=== PATIENT | female | born 1985 | race Caucasian/White ===

== ENCOUNTER 2023-04-23 11:55 | Outpatient (CLI) | payer BC, SELFPAY | END 2023-04-23 11:56 | disposition home or self-care (01) | LOC: CHSIMG 11:59 | PROVIDERS: PCP Internal Medicine; Visit Provider Nurse Practitioner | DX: Z12.31 Encounter for screening mammogram for malignant neoplasm of breast (principal) | CPT/HCPCS: 99199 ==

== ENCOUNTER 2023-04-24 09:14 | Outpatient (CLI) | payer BC, SELFPAY ==
--- NOTE | ~2023-04-24 | MMUS_ITS ---
EXAMINATION: MM diagnostic nory BI w libia, US breast BI complete HISTORY: Bilateral breast lumps TECHNIQUE: ML, MLO and CC 3-D tomosynthesis images of both breasts were performed and synthetic 2-D i mages were generated. Magnification views of left breast. CAD analysis was submitted and interpreted. High resolution bilateral complete breast ultrasound examination including all 4 quadrants and subar eolar areas was performed. COMPARISON: None BREAST PARENCHYMAL COMPOSITION: The breasts are extremely dense, which lowers the sensitivity of mamm ography. FINDINGS: MAMMOGRAPHIC FINDINGS: Minimal benign appearing calcification is noted in each breast. Bilateral breast masses are suggested the the extremely dense stroma obscures detail. No architectural distortion, malignant calcification, skin thickening or retraction of either breast is detected. ULTRASOUND: There are multiple bilateral simple breast cysts, the largest on the right at 9:00 measuring up to 3 cm, the largest on the left measuring up to 3.3 cm. No suspicious mass or shadowing is detected. IMPRESSION: 1. Multiple bilateral benign breast cysts. No mammographic evidence of malignancy 2. Routine annual mammographic screening is recommended BI-RADS Category 2: Benign finding(s). Reviewed, dictated and finalized at location A. IMPRESSION: 1. Multiple bilateral benign breast cysts. No mammographic evidence of malignan cy 2. Routine annual mammographic screening is recommended BI-RADS Category 2: Benign finding(s).
== END 2023-04-24 09:15 | disposition home or self-care (01) ==
LOC: CHSIMG 09:15
PROVIDERS: PCP Internal Medicine; Visit Provider Nurse Practitioner
DX: N63.13 Unspecified lump in the right breast, lower outer quadrant (principal)
CPT/HCPCS: 76641; 77062; 77066; G0279

== ENCOUNTER 2025-01-27 12:25 | Outpatient (CLI) | payer BC, SELFPAY ==
--- NOTE | ~2025-01-27 | MM_ITS ---
EXAMINATION: MM screening nory BI w libia HISTORY: Screening TECHNIQUE: Craniocaudal and mediolateral oblique 3-D tomosynthesis images were obtained and synthetic 2-D images were generated. CAD analysis was submitted and interpreted. COMPARISON: Comparison to multiple prior studies sequentially, with oldest reviewed study dated 04/24. BREAST PARENCHYMAL COMPOSITION: Dense: The breasts are extremely dense, which lowers the sensitivity of mammography. FINDINGS: There are multiple new bilateral breast masses which are obscured by dense fibroglandular t issue. There are no suspicious calcifications or architectural distortion. IMPRESSION: 1. Multiple developing/new bilateral breast masses obscured by dense fibroglandular tissue. 2. Complete bilateral breast ultrasound recommended. BI-RADS Category 0: Incomplete: Needs additional imaging evaluation. Reviewed, dictated and finalized at location A. IMPRESSION: 1. Multiple developing/new bilateral breast masses obscured by dense fibrogland ular tissue. 2. Complete bilateral breast ultrasound recommended. BI-RADS Category 0: Incomplete: Needs additional imaging evaluation.
--- OUTSIDE RECORDS SUMMARY | 2025-01-27 12:56 | XMS_ITS | Continuity of Care Document ---
Author Organization [facility] Address [address] [place] [address] Phone Care Team Providers Care Video Game Animator Name Role Phone Gopal Cleary MD Unavailable Unavailable Allergies, Adverse Reactions, Alerts Substance Reaction Status Criticality No Known Allergies Active No Inform ation Medications Medication Instructions Dosage Effective Dates (start - stop) Status Comments diclofenac 1 % topical gel apply (2G) by topical route 3 times every day to the affected area(s) 2 G - Active max 6 gm/24 hours Procedures Procedure Date PREV VISIT, NEW, AGE 18-39 OFFICE/OUTPATIENT VISIT, [facility] Advance Directives Directive Yes / No Effective Date File Name No Information Encounters Encounter Description Practice Location Reason(s) For Visit Diagnoses Date Provider Providers Copied on Encounter [facility], [address] [place], [place], [id number], tel:[phone] [facility] No Information Evin Herron. [address] [place], [place], [id number] , [place]. tel:[phone] PREV VISIT, NEW, AGE 18-39 [facility], [address] [place], [place], [id number], [place] tel:[phone] [facility] Medicine physical (chief complaint) Encounter for general adult medical exam w abnormal findingsPain in right knee Evin Herron. [address], [facility] [place], [place], [id number] , [place]. tel:[phone] Family History Family Member Type Diagnosis Age At Onset Sister Problem Alive and well Father Problem of throat CA related to toxic exposure 56 Mother Problem Alive and well Payers Payer name Insurance type Covered constitution party ID Authoriza tion(s) No Information Social History Type Description Quantity Date Captured Comments Sex Female Smoking Status No Information Chief Complaint And Reason For Visit No Information Plan Of Treatment Date Type Action Status Referral Ordered: Physical Therapy (related to Pain in right knee) ordered Referral Ordered: KNEE XRAY, 4 OR MORE VIEWS Right ordered Referral Ordered: MRI JNT OF LWR EXTRE W/O DYE Right knee ordered Referral Referred To: Physical Therapy Ordered: Referrals: Physical Therapy. Evaluate and treat ordered Referral Ordered: MAMMOGRAM, SCREENING ordered History Of Present Illness Encounter Date Complaint History Of Prese nt Illness physical Pt needs annual physical. 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 Pt c/o acute onset of right knee pain x 3 weeks. Pt denies any injury Pt has intermittent right knee swelling as well. Pt states that she has sharp pain, worse when she going down stairs. Pt does a lot of hiking and she is also a runner as well. Pt denies any knee pain while resting .Pt states that she actually has intermittent right knee in the past as well but she has not had any pain for several years until 3 weeks ago. pt also has history of left knee pain but she denies any acute pain. Pt denies any other complaints Instructions Date Instruction Additional Infor mation No Information Assessments Type Assessment Date No Information
--- OUTSIDE RECORDS SUMMARY | 2025-01-27 12:56 | XMS_ITS | Data Portability ---
Author Organization [facility] [place] Address [address] [place] [address] Care Team Providers Care Photographer Finish Name Role Phone MERYL LARES Primary Care Provider [phone] Assessment Encounter Date Assessment Date Assessment LastModified by Organization Details LastModified Time 03/14/2023 03/14/2023 Annual gynecological exam performed. Patient will come back in a year unless there are new symptoms. [email or web address] Not available 03/14/2023 14:50:07 Plan of Treatment Reminders Order Date Submit Date Provider Last Modified By Organization Details Last Modified Time Details Appointments None recorded . Lab None recorded . Referral breast surgery referral [address] [facility], [address] [place] [address], [address], [place], [address], 4 09:14:23 Procedures None recorded . Surgeries None recorded . Imaging MAMMO, diagnost ic, digital, bilatera l - bilatera l breast lumps in outer quadrant s 2022 023 MER[facility] Not available 3 14:21:50 US, breast, bilatera l, complete 2022 023 [email or web address] Not available 15:58:26 Medication Orders None recorded . Patient TargetsNo targets recorded. Patient InstructionsNo instructions recorded. Reason for Referral Breast Surgery Referral for Breast lump Referring Physician: Tasneem Gross, RECEIVING SUPERVISOR, Encounter Date: 06/04/2023 Results Created Date Observation Date Name Description Value Unit Range Abnormal Flag Note LastModifiedBy Organization Detail LastModifiedTime 04/24/2004/24/2023 MAMMO , diagn ostic , digit al, bilat eral No observ ation record ed. [facility] [address] [place], [address], 04/25/2023 12:26:31 Result Notes None recorded. Procedures Surgical History Date Name Laterality Status Provider Name and Address Organization Details Recorded Time Date of Last Pap Smear completed [facility] 03/14/2023 14:51:21 Imaging Results None recorded. Procedure Notes None recorded. Medical Equipment None Reported. Allergies No known drug allergies Medications Name Sig Start Date Stop Date Status Note LastModified by Organization Details LastModified Time spironolact one 100 mg tablet TAKE 1 TABLET BY MOUTH DAILY active Not Available Not Available No t Available diclofenac 1 % topical gel APPLY 2 GRAMS TO THE AFFECTED AREA THREE TIMES DAILY. MAX 6 GM IN 24 HOURS 03/14 completed Not Available Not Available Not Available Vitals Date Recorded Body height Body mass index (BMI) Body weight Systolic blood pressure Diastolic blood pressure Provider Name and Address Organization Details Last Updated DateTime 03/14/2023 160.02 cm 29.6 kg/m2 31914.64 g 115 mm[Hg] 75 mm[Hg] [facility] 14:51:01 Date Recorded Body height Body mass index (BMI) Body weight Systolic blood pressure Diastolic blood pressure Provider Name and Address Organization Details Last Updated DateTime 06/04/2023 160.02 cm 29.6 kg/m2 09544.93 g 124 mm[Hg] 80 mm[Hg] Katheryn Walsh [facility] 14:29:04 Social History Question Answer Notes LastModified by Organizat ion Details LastModified Time Tobacco Smoking Status Never Smoker Katheryn lantigua [facility] 06/04/2023 14:29:13 Are You Blind Or Do You Have Difficulty Seeing? No Information n ot available 03/14/2023 What Is Your Level Of Caffeine Consumption? Occasional Information not available 06/04/2023 How Much Tobacco Do You Chew? None Information not available 06/04/2023 In The 14 Days Before Symptom Onset, Have You Had Close Contact With A Laboratory-confirm ed COVID-19 While That Case Was Ill? No Information n ot available 06/04/2023 In The 14 Days Before Symptom Onset, Have You Had Close Contact With A Person Who Is Under Investigation For COVID-19 While That Person Was Ill? No Information not available 06/04/2023 Have You Been To An Area Known To Be High Risk For COVID-19? No Information not available 06/04/2023 Are You Deaf Or Do You Have Serious Difficulty Hearing? No Information not available 03/14/2023 What Type Of Diet Are You Following? REGULAR Information n ot available 06/04/2023 What Is The Highest Grade Or Level Of School You Have Completed Or The Highest Degree You Have Received? [id number] Information not available 06/04/2023 Are There Any Guns Present In Your Home? Yes Information not available 06/04/2023 Do You Use Protection During Sex? No Information not available 06/04/2023 Do You Have Smoke And Carbon Monoxide Detectors In Your Home? Yes Information not available 06/04/2023 How Much Tobacco Do You Smoke? No Information not available 06/04/2023 Do You Use Sunscreen Routinely? Yes Information not available 06/04/2023 Have You Used IV Drugs? No Information not available 06/04/2023 Do You Have Difficulty Walking Or Climbing Stairs? No Information not available 06/04/2023 Sex: Unknown Functional Status Question Answer Note LastModified by Organizat ion Details LastModified Time Do you use any illicit or recreational drugs? No Information not available 06/04/2023 What is your level of alcohol consumption? None Information not available 03/14/2023 Are you able to walk? YESWOREST Information not available 03/14/2023 Are you able to care for yourself? Yes Information n ot available 06/04/2023 What is your occupation? Teacher Information not available 06/04/2023 Do you have difficulty dressing or bathing? No Information not available 06/04/2023 What is your exercise level? Moderate Information not available 06/04/2023 Mental Status Question Answer Note LastModified by Organization D etails LastModified Time Do you feel stressed (tense, restless, nervous, or anxious, or unable to sleep at night)? [id number] Information not available 06/04/2023 Family History Relationship Description Onset Age of this Age Resolved Age Notes LastModified by Organization Details LastModified Time Paternal Grandmother Malignant tumor of colon [email or web address] Not available 09/2022 14:53:11 Mother Essential hypertension [email or web address] Not available 14:22:37 Father Malignant neoplasm of lung [email or web address] Not available 09/2022 14:53:31 Medical History Condition Response Allergies (Food, seasonal, environmental ) N Other N Breast Cancer N Drug/Latex Allergies/Reactions N Blood Transfusion N Dermatologic Disorders N Lung Disease N Defects or Inherited Disease N Breast Problem N Gestational Diabetes N Hematologic disorders N Anesthesia Complications N History of STI N Deep Vein Thrombosis N Polycystic ovary syndrome N Anxiety Disorder N Autoimmune disease N Arthritis N Infertility N Polyps N Acid Reflux (GERD) N History of abnormal pap N Cancer N Stroke N Varicosities N Neurologic/Epilepsy N Endometriosis N High Cholesterol N Headaches N Fibromyalgia N Kidney Disease N Heart Problems N Kidney or Bladder Problems N Thyroid Problems N GI Problems N Eating Disorder N Anemia N Art (IVF or FET) N Psychiatric Illness N Ovarian Cancer N Diabetes N Pulmonary (TB, Asthma) N Hepatitis/Liver Disease N No Past Medical History N Eczema N Urinary Tract Infection N Abuse/Domestic Violence N Asthma N Trauma/Violence N Depression/ depression N Heart Disease N Pre-Eclampsia N Hypertension N Osteoporosis N Thrombophilias N Gynecological History Statement/Question Response Abnormal Pap Y Flow Moderate Date of LMP 02/27/2023 Was last menstrual period normal Y STIs/STDs N HPV Vaccine N Duration of Flow (days) 4 Current Control Method Sterilizati on Are cycles usually normal Y Sexually Active? Y Menses Monthly Y Age of first menstrual cycle 9 Date of Last Pap Smear 02/20/2023 Sexual Problems? N LMP Approximate Obstetrics History GPAL:G 2 P 0 0 0 2 Type Value Living 2 Total 2 Past Encounters Encounter ID Performer Location Encounter Start Date Encounter Closed Date Diagnosis/Indication Diagnosis SNOMED-CT Code Diagnosis ICD10 Code Diagnosis Note [id number] Tasneem GrossIVA [place] [address] [address] 03/14/2023 14:10:13 03/14/2023 16:56:17 Breast lump 11998617 N63.0 Gynecologi c examination 05175670 Z01.419 Take Calcium with Vitamin D 1200mg daily if not receiving in daily diet. It is strongly advised to have an annual flu shot and up can obtain at most pharmacies . If you have not had a TDap shot in the last 10 years you should obtain one as well. Discussed with patient & provided with informatio n regarding Gardisil vaccine to prevent the 4 strains for HPV that cause cervical cancer if under age 26. Encourage safe sexual practices, to use condoms and limit partners if not already in a monogamous relationsh ip. Do monthly self breast exams. Have mammogram yearly or every other year depending on family history. BRCA testing is now available for patients with strong genetic history of female cancer. If interested contact the office. Engage in daily exercise of low impact aerobic exercise 45-60 minutes 4-5 times weekly. Avoid tobacco and illicit drugs as well as using moderation with alcohol intake less than 1-2 8 oz beverages daily. This lifestyle behavior pattern will lead to less health conditions and longer life span. If BMI greater than 25 weight watchers or dietary consult advised. Patient received above instructio ns, and questions have been answered. If you have any questions please call or respond to this email. Patient was made aware of the patient portal and may obtain a paper copy of today's plan if desired. WWEBC - BTLlast pap 02/20/23 ASCUS, HPV (-) - done at PCP's office.dis cussed result - recommend repeat pap in 1 yeardiagno stic mammogram with breast u/s ordered, bilateral breast lumps in outer quadrantso rder given to patient, encouraged to scheduleUT D with [facility] in 1 year or sooner if needed [id number] IVA [facility] [place] [address] [address] 06/04/2023 14:22:12 06/04/2023 15:14:17 Breast lump 24323604 N63.0 persistant bilateral breast lumps felt on exam todaydiscu ssed option of breast specialist consult, she would like to pursue thisprefer s to go to [facility], referral placedRTC for WWE or sooner if needed Time spent in visit is a total of 18 mins with at least 50% of visit consisting of counseling and review of plan of care. Health Concerns Section Related Observation LastModified by Organization Detai ls LastModified Time None Recorded Concern Status LastModified by Organization Details LastModified Time None Recorded Advance Directives Directive None Recorded Payers Insurance Date Sequence Insurance Name Policy Number Policy Delacruz Covered Member ID Delacruz Member ID Guarantor Name 07/30/2023 1 [facility] ([id number]) [id number] Kurt Spivey [id number] Elizabeth Spivey Notes Date Note Type Note Provider Name and Address Organization Details Recorded Time 03/14/2023 text/html Annual GYNReport ed bypatient.Menstrual cycle:Normal menses Urinary symptoms:No hematuria; No incontinence Vulva:No genital lesion Vagina:Normal vaginal discharge Breast:No breast pain; No breast lump; No nipple discharge Current Contraception:Satis fied with current contraception; Tubal ligation Sexual complaints:No sexual complaints; No pain during intercourse; Normal libido Menopausal Symptoms:No menopausal symptoms; Normal vaginal lubrication Psychological symptoms:No depression; No anxiety; No PMDD Preventive measures:Encourage self breast examination; Encourage regular exercise; Encourage no tobacco use; Encourage regular mammograms starting age 40Notes:referred by PCP for abnormal pap - 02/20/23 ASCUS, HPV (-). No hx of abnormal paps prior, last pap prior to this pap was 10 years ago IVA Cristobal [address], [place], [address], [facility] 03/14/2023 16:52:28 06/04/2023 text/html 38yopresents for f/u on breast lumpbilateral breast lumps noted on exam 3diagnostic nory and u/s noted bi-rads 2, multiple benign breast cystlumps are still felt, tenderness comes and goes drinks 1 cup of coffee per day IVA Cristobal [address], [place], [address], [place] [facility] 06/04/2023 14:57:24 OBGyn Episode Ob Episode Information Episode Created Date Number of Fetuses Patient Bloodtype Patient rh Status Prepregnancy Weight lbs Domestic Partner Domestic Partner Phone Father Name Fabric Inspector Status 03/14/20 1 CLOSED Fetus Data First Name Last Name Admitted to NICU Weight (g) Sex Living Outcome Pediatric Complications Fetus ID Race Codes Race Delivery Type 3628.73 6 [id number] Repeat Taqueria Calculation Initial Taqueria Date Initial Exam Date Initial Exam Provider Initial Ultrasound Date Last Menstrual Period Date Ultra Sound Weeks Gestation 0 Eighteen To Twenty Week Taqueria Update Ultra Sound Date Fundal Height At Umbil Quickening Date Ultra Sound Latest Weeks Gestation Final Taqueria Confirmed By Final Taqueria Confirmed Date Final Taqueria Date Ultra Sound Latest Days Gestation 0 0 Menstrual History Last Menstrual Date Menses Monthly On Bcp Conception Prior Menses Frequency Hcg Plus Date Menarche Onset Age Delivery Information Delivery Date Delivery Type Labor Anesthesia Weeks Gestation Incision Type Labor Labor Length Hrs Delivered By Post Complications Tubal Sterilization Discharge Date Comments 3 Discharge Information Feeding Method Contraceptive Method Maternal HG B and HCT Levels Ob Episode Information Episode Created Date Number of Fetuses Patient Bloodtype Patient rh Status Prepregnancy Weight lbs Domestic Partner Domestic Partner Phone Father Name Fabric Inspector Status 03/14/20 1 CLOSED Fetus Data First Name Last Name Admitted to NICU Weight (g) Sex Living Outcome Pediatric Complications Fetus ID Race Codes Race Delivery Type 3628.73 6 [id number] Primary Taqueria Calculation Initial Taqueria Date Initial Exam Date Initial Exam Provider Initial Ultrasound Date Last Menstrual Period Date Ultra Sound Weeks Gestation 0 Eighteen To Twenty Week Taqueria Update Ultra Sound Date Fundal Height At Umbil Quickening Date Ultra Sound Latest Weeks Gestation Final Taqueria Confirmed By Final Taqueria Confirmed Date Final Taqueria Date Ultra Sound Latest Days Gestation 0 0 Menstrual History Last Menstrual Date Menses Monthly On Bcp Conception Prior Menses Frequency Hcg Plus Date Menarche Onset Age Delivery Information Delivery Date Delivery Type Labor Anesthesia Weeks Gestation Incision Type Labor Labor Length Hrs Delivered By Post Complications Tubal Sterilization Discharge Date Comments 8 Discharge Information Feeding Method Contraceptive Method Maternal HG B and HCT Levels
--- OUTSIDE RECORDS SUMMARY | 2025-01-27 12:56 | XMS_ITS | Clinical Summary ---
Author Organization [facility] Address [facility] [place] [place] [address] Care Team Providers Care Bottler Helper Name Role Phone Yudi Márquez MD Primary Care Provider [phone] Allergies No known active allergies Medications multi vitamin/mineral s (THERA-M ENHANCED) tablet Take 1 tablet by mouth daily. 025 Discontinued probiotic (FLORAJEN3) Cap capsule Take 1 capsule by mouth 3 (three) times daily with meals. 025 Discontinued( erapy completed) biotin 300 MCG Tab Take 1 tablet (300 mcg total) by mouth daily. 025 Discontinued( erapy completed) methylPREDNISol one, THERESA, (MEDROL DOSEPAK) 4 MG tabletIndicatio ns:Acute otitis externa of right ear, unspecified type 6 TABLETS ON DAY ONE, 5 TABLETS DAY TWO, 4 TABLETS DAY THREE, 3 TABLETS DAY FOUR, 2 TABLETS DAY FIVE, AND 1 TABLET DAY SIX 1 each 01/08/20 24 025 Discontinued spironolactone (ALDACTONE) 100 MG tablet Take 1 tablet (100 mg total) by mouth daily. 025 Discontinued Active Problems No known active problems Encounters Date Type Department Care Team Description 01/12/2025 8:00 AM CDT [facility] [address] [place] [address] Yudi Márquez MD Physical 01/12/2025 Results [facility] [address] [place] [address] Yudi Márquez MD VITAMIN D 25 OH, CBC W/DIFF AUTOMATED, COMPREHENSIVE METABOLIC PANEL, Additional followed-up results: 4 01/12/2025 Travel from Last 3 Months Immunizations Immunization Administration Dates Next Due MODERNA COVID-19 (12+) MRNA, LNP-S, PF, 100 MCG/ 0.5 ML DOSE 10/22/2020,09/24/2020 PFIZER COVID-19 (ORIGINAL FO RMULATION, PURPLE CAP) mRNA, LNP-S, PF, 30 MCG/0.3 ML DOSE 08/17/2021 Tdap (Adacel) 01/12/2025 Family History Medical History Relation Comments Cancer Father Federico No Known Problems Mother Cancer Paternal Grandmother Relation Status Comments Father Mother Alive Paternal Grandmother Social History Tobacco Use Types Packs/Day Years Used Date Smoking Tobacco: Never Smokeless Tobacco: Never Tobacco Cessation:Counseling Given: Yes Comments:Counseled by Dr Márquez. Alcohol Use Standard Drinks/Week Comments Never 0 (1 standard drink = 0.6 oz pur e alcohol) [id number] Health Literacy Answer Date Recor ded How often do you need to hav e someone help you when you read instructions, pamphlets, or other written material from your doctor or pharmacy? Never 01/12/2025 [facility] Utilities Answer Date Recorded In the past 12 months has [facility] gas, oil, or water [employer] threatened to shut off services in your home? No 01/12/2025 Humiliation, Afraid, Rape, and Kick questionnair e Answer Date Recorded Within the last year, have y ou been afraid of your partner or ex-partner? No 01/12/2025 Within the last year, have y ou been humiliated or emotionally abused in other ways by your partner or ex-partner? No Within the last year, have y ou been kicked, hit, slapped, or otherwise physically hurt by your partner or ex-partner? No 01/12/2025 Within the last year, have y ou been raped or forced to have any kind of sexual activity by your partner or ex-partner? No 01/12/2025 Social Connection and Isolat ion Panel [NHANES] Answer Date Recorded In a typical week, how many times do you talk on the phone with family, friends, or neighbors? More than three times a week 01/12/2025 How often do you get togethe r with friends or relatives? More than three times a week 01/12/2025 How often do you attend chur or islam services? Patient unable to answer 01/12/2025 Active Member of Clubs or Organizations Not on f ile 01/12/2025 How often do you attend meet ings of the clubs or organizations you belong to? Patient unable to answer 01/12/2025 Are you , , di vorced, , never , or living with a partner? 01/12/2025 AUDIT-C Answer Date Recorded Q1: How often do you have a drink containing alcohol? Never 01/12/2025 Q2: How many drinks containi ng alcohol do you have on a typical day when you are drinking? Patient does not drink Q3: How often do you have si x or more drinks on one occasion? Never 01/12/2025 Overall Financial Resource Strain (CARDIA) Answe r Date Recorded How hard is it for you to pa y for the very basics like food, housing, medical care, and heating? Not very hard 01/12/2025 PHQ-2 Answer Date Recorded Patient Health Questionnaire-2 Score 0 01/14/2025 [facility] - Occupational Stress Questionnaire Answer Date Recorded Do you feel stress - tense, restless, nervous, or anxious, or unable to sleep at night because your mind is troubled all the time - these days? Not at all 01/12/2025 Exercise Vital Sign Answer Date Recorde d On average, how many days pe r week do you engage in moderate to strenuous exercise (like a brisk walk)? 7 days 01/12/2025 On average, how many minutes do you engage in exercise at this level? 50 min 01/12/2025 Hunger Vital Sign Answer Date Recorded Within the past 12 months, y ou worried that your food would run out before you got the money to buy more. Never true 01/13/20 25 Within the past 12 months, t he food you bought just didn't last and you didn't have money to get more. Never true 01/12/2025 PRAPARE - Transportation Answer Date Re corded In the past 12 months, has l ack of transportation kept you from medical appointments or from getting medications? No 09/2024 In the past 12 months, has l ack of transportation kept you from meetings, work, or from getting things needed for daily living? No 01/12/2025 Housing Stability Vital Sign Answer Anup e Recorded In the last 12 months, was t here a time when you were not able to pay the mortgage or rent on time? No 01/12/2025 Number of Times Moved in the Last Year Not on fi le 01/12/2025 At any time in the past 12 m [facility], were you homeless or living in a fpc (including now)? No 01/12/2025 Comments No Sex and Gender Information Value Date Recorded Sex Assigned at Not on file Legal Sex Female 3:50 PM CDT Gender Identity Not on file Sexual Orientation Not on file Last Filed Vital Signs Vital Sign Reading Time Taken Comments Blood Pressure 102/64 01/12/2025 8:04 AM CDT Pulse 76 01/12/2025 8:04 AM CDT Temperature 35.4 C (95.8 F) 01/12/2025 8:04 AM CDT Respiratory Rate 16 01/12/2025 8:04 AM CDT Oxygen Saturation 96% 01/12/2025 8:04 AM CDT Inhaled Oxygen Concentration - - Weight 77.8 kg (171 lb 9.6 oz) 01/12/2025 8:04 A M CDT Height 160 cm (5' 3) 01/12/2025 8:04 AM CDT Body Mass Index 30.4 01/12/2025 8:04 AM CDT Plan of Treatment Upcoming Encounters Date Type Department Care Team (Late st Contact Info) Description 01/13/2026 7:00 AM CDT Office Visit [facility] [place] [address] [facility] [address] [place] [address] Yudi Márquez [place] [address] [place] [address] [address] [place] [address] Health Maintenance Due Date Last Done Comments Hepatitis B Vaccines (1 of 3 - 19+ 3-dose series) 2002 COVID-19 Vaccine ( season) 2024 08/17/2021, 10/22/2020, 09/24/2020 Mammogram Screening 04/24/2025 04/24/2023 Annual Physical 01/12/2026 01/12/2025, 12/12, 02/14/2023, Additional history exists Cervical Cancer Screening Pap Smear (Age 30 to 64) Every 3 Years 02/14/2026 02/14/2023 Cervical Cancer Screening Pap with HPV Testing (Age 30 to 64) Every 5 Years 02/15/2028 02/14/2023 Cervical Cancer Screening with HPV 02/15/2028 DTaP, Tdap and Td Vaccines (2 - Td or Tdap) 01/12/2035 01/12/2025 Hepatitis C Completed 01/03/2023 PHQ-2 ([facility] [place]) Completed 01/14/2025 HPV Vaccines Aged Out No longer eligi ble based on patient's age to complete this topic Meningococcal B Vaccine Aged Out No l onger eligible based on patient's age to complete this topic Meningococcal Vaccine Aged Out No hardeep tabby eligible based on patient's age to complete this topic Pneumococcal Vaccine: Pediatrics (0 to 5 Years) and At-Risk Patients (6 to 49 Years) Aged Out No longer eligible based on patient's age to complete this topic RSV Immunizations Under 20 Months Aged Out No longer eligible based on patient's age to complete this topic Procedures Procedure Name Priority Date/Time Associated Diagnosis Comments HEMOGLOBIN, GLYCOSYLATED Routine 01/12/2025 1:32 PM CDT Annual physical exam General medical exam Drug therapy TSH W/REFLEX Routine 01/12/2025 1:32 PM CDT Annual physical exam General medical exam Drug therapy LIPID PANEL Routine 01/12/2025 1:32 PM CDT Annual physical exam General medical exam Drug therapy COMPREHENSIVE METABOLIC PANEL Routine 01/12/2025 1:32 PM CDT Annual physical exam General medical exam Drug therapy CBC W/DIFF AUTOMATED Routine 01/12/2025 1:32 PM CDT Annual physical exam General medical exam Drug therapy VITAMIN D, 25 OH Routine 01/12/2025 1:32 PM CDT Annual physical exam General medical exam Drug therapy Vitamin D deficiency COLLECTION VENOUS BLOOD VENIPUNCTURE Routine 01/12/2025 8:19 AM CDT Annual physical exam General medical exam Drug therapy URINALYSIS AUTO DIP Routine 01/12/2025 Annual physical exam General medical exam Drug therapy MAMMOGRAM GENERIC (SCAN ORDER) 04/24/2023 HUMAN PAPILLOMAVIRUS, HIGH-RISK TYPES Routine 02/14/2023 12:00 PM CDT CYTOPATH CERV/VAG THIN LAYER Routine 02/14/2023 7:53 AM CDT HEPATITIS C ANTIBODY Routine 01/03/2023 7:15 AM CDT Annual physical exam General medical exam Encounter for medical examination to establish care Encounter for hepatitis C screening test for low risk patient from Last 3 Months or Most Recently Relevant to Health Maintenance Results * TSH W/REFLEX (01/12/2025 1:32 PM CDT) TSH 1.394 0.358 - 3.740 uIU/ML 01/12/2025 4:06 PM CDT [facility] 01/12/2025 1:32 PM CDT Yudi Márquez MD LABORATORY Final Result [facility] [address] [place] [address], [place] [phone] * HEMOGLOBIN, GLYCOSYLATED (01/12/2025 1:32 PM CDT) HGB A1C 4.6 4.5 - 6.2 % 01/12/2025 4:46 PM CDT [facility] ESTIMATED AVG GLUCOSE 85 74 - 106 MG/DL 01/12/2025 4:46 PM CDT [facility] 01/12/2025 1:32 PM CDT Yudi Márquez MD LABORATORY Final Result -[facility] LUCINDA [facility] [address] [facility] [place] [place] [address], * COMPREHENSIVE METABOLIC PANEL (01/12/2025 1:32 PM CDT) Pathologist [facility] SODIUM S/P/B 141 136 - 145 MMOL/L 01/12/2025 4:06 PM CDT -[facility] POTASSIUM S/P/B 4.3 3.5 - 5.1 MMOL/L 01/12/2025 4:06 PM CDT [facility] CHLORIDE S/P/B 105 98 - 107 MMOL/L 01/12/2025 4:06 PM CDT [facility] CO2 28.3 21 - 32 MMOL/L 01/12/2025 4:06 PM CDT [facility] GLUCOSE 71 70 - 99 MG/DL 01/12/2025 4:06 PM CDT [facility] BUN 14 7 - 18 MG/DL 01/12/2025 4:06 PM CDT [facility] CREATININE S/P/B 0.77 0.55 - 1.02 MG/DL 01/12/2025 4:06 PM CDT [facility] CALCIUM S/P/B 8.7 8.4 - 10.5 MG/DL 01/12/2025 4:06 PM CDT [facility] BILIRUBIN TOTAL S/P/B 0.7 0.2 - 1.0 MG/DL 01/12/2025 4:06 PM CDT [facility] ALKALINE PHOSPHATASE S/P/B 41 37 - 98 U/L 01/12/2025 4:[facility] 19 15 - 37 U/L 01/12/2025 4:06 PM CDT [facility] ALT 21 14 - 59 U/L 01/12/2025 4:06 PM [facility] TOTAL PROTEIN S/P/B 7.1 6.4 - 8.2 G/DL 01/12/2025 4:06 PM [facility] ALBUMIN S/P/B 3.7 3.4 - 5.0 G/DL 01/12/2025 4:06 PM CDT [facility] ANION GAP 7.7 5 - 15 MMOL/L 01/12/2025 4:06 PM T [facility] Comment:REFERENCE RANGE NOT ESTABLISHED OSMOLALITY (CALC) 291 MOSM/KG 025 4:06 PM [facility] Comment:REFERENCE RANGE NOT ESTABLISHED GFR ESTIMATE >90 >90 ML/MIN/1. 73 M2 01/12/2025 4:06 PM T [facility] GFR NOTES GFR REFERENCE S: 01/12/2025 4:06 PM T [facility] Comment: THE ESTIMATED GFR IS CALCULATED USING THE 2020 CKD-EPI EQUATION. THE FOLLOWING CATEGORIES FOR GRADING RENAL FUNCTION ARE RECOMMENDED BY THE INTERNATIONAL SOCIETY OF NEPHROLOGY (KDIGO 2012 CLINICAL PRACTICE GUIDELINE). G1,NORMAL OR HIGH: >89 ml/min/1.73 m2 G2,MILDLY DECREASED: 60-89 ml/min/1.73 m2 G3A,MILDLY TO MODERATELY DECREASED: 45-59 ml/min/1.73 m2 G3B,MODERATELY TO SEVERELY DECREASED: 30-44 ml/min/1.73 m2 G4,SEVERELY DECREASED: 15-29 ml/min/1.73 m2 G5,KIDNEY FAILURE: <15 ml/min/1.73 m2 01/12/2025 1:32 PM CDT Yudi Márquez MD LABORATORY Final Result [facility] [address] [place] [address], * (ABNORMAL) LIPID PANEL (01/12/2025 1:32 PM CDT) [facility] CHOLESTEROL 189 <200 MG/DL 01/12/2025 4:06 PM CDT [facility] TRIGLYCERIDES 52 <150 MG/DL 01/12/2025 4:06 PM CDT [facility] HDL 64 >40 MG/DL 01/12/2025 4:06 PM CDT [facility] LDL-C 115(H) <100 MG/DL 01/12/2025 4:06 PM CDT [facility] VLDL CALCULATION 10 5 - 28 MG/DL 01/12/2025 4:06 PM CDT [facility] CHOL/HDL RATIO 3.0 0.0 - 4.0 01/12/2025 4:06 PM CDT [facility] LDL/HDL 1.8 0.41 - 2.13 01/12/2025 4:06 PM CDT [facility] NON HDL CHOLESTEROL 125 <140 MG/DL 01/12/2025 4:06 PM CDT [facility] 01/12/2025 1:32 PM CDT Yudi Márquez MD LABORATORY Final Result [facility] [address] [place] [address], * (ABNORMAL) CBC W/DIFF AUTOMATED (01/12/2025 1:32 PM CDT) Pathologist [facility] WBC 4.89 4.00 - 10.80 x10'3/uL 01/12/2025 3:04 PM CDT [facility] RBC 4.88 4.10 - 5.40 x10'6/uL 01/12/2025 3:04 PM CDT [facility] HGB 14.7 12.0 - 16.0 G/DL 01/12/2025 3:04 PM CDT [facility] HCT 44.3 36.0 - 47.0 % 01/12/2025 3:04 PM CDT [facility] MCV 90.8 78.0 - 100.0 FL 01/12/2025 3:04 PM CDT [facility] MCH 30.1 27.0 - 31.0 PG 01/12/2025 3:04 PM CDT [facility] MCHC 33.2 33.0 - 36.0 G/DL 01/12/2025 3:04 PM CDT [facility] RDW 11.6 11.5 - 14.5 % 01/12/2025 3:04 PM CDT [facility] PLT 187 150 - 350 x10'3/uL 01/12/2025 3:04 PM CDT [facility] MPV 12.4(H) 7.4 - 10.4 FL 01/12/2025 3:04 PM CDT [facility] DIFFERENTIAL TYPE AUTOMATED DIFFERENTIAL 01/12/2025 3:04 PM CDT [facility] NEUTROPHILS % 64.2 % 01/12/2025 3:04 PM CDT [facility] LYMPHOCYTES % 25.4 % 01/12/2025 3:04 PM CDT [facility] MONOCYTES % 8.2 % 01/12/2025 3:04 PM CDT [facility] EOSINOPHILS % 1.4 % 01/12/2025 3:04 PM CDT [facility] BASOPHILS % 0.8 % 01/12/2025 3:04 PM CDT [facility] IMMATURE GRANS % 0.0 % 01/12/2025 3:04 PM CDT [facility] ABS. NEUTROPHILS 3.14 1.60 - 8.30 x10'3/uL 01/12/2025 3:04 PM CDT [facility] ABS. LYMPHOCYTES 1.24 0.80 - 4.70 x10'3/uL 01/12/2025 3:04 PM CDT [facility] ABS. MONOCYTES 0.40 0.00 - 1.50 x10'3/uL 01/12/2025 3:04 PM CDT [facility] ABS. EOSINOPHILS 0.07 0.00 - 0.40 x10'3/uL 01/12/2025 3:04 PM CDT [facility] ABS. BASOPHILS 0.04 0.00 - 0.20 x10'3/uL 01/12/2025 3:04 PM CDT [facility] ABS. IMMATURE GRANULOCYTES 0.00 0.00 - 0.03 x10'3/uL 01/12/2025 3:04 PM CDT [facility] 01/12/2025 1:32 PM CDT us Yudi Márquez MD LABORATORY Final Result Performing Organization Address City/[facility]/ZIP Co de Phone Number [address] [address], * VITAMIN D 25 OH (01/12/2025 1:32 PM CDT) Pathologist [facility] VITAMIN D 25 HYDROXY TOTAL S/P/B 38.1 30 - 100 NG/ML 01/12/2025 4:06 PM CDT [facility] Comment: DEFICIENT <20 INSUFFICIENT 20-30 SUFFICIENT 30-100 01/12/2025 1:32 PM CDT us Yudi Márquez MD LABORATORY Final Result [facility] [address] [place] [address], * URINALYSIS AUTO DIP (01/12/2025) COLOR (U) YELLOW YELLOW [address], [facility] TRANSPARENC[facility] CLEAR CLEAR [address], [place] GLUCOSE (U) NEGATIVE NEGATIVE MG/DL [address], [place] BILIRUBIN (U) NEGATIVE NEGATIVE MG-[address], [place] KETONES MG/DL (U) NEGATIVE NEGATIVE MG/DL [address], [place] SPECIFIC GRAVITY (U) 1.015 1.001 - 1.035 [address], [place] BLOOD (U) NEGATIVE NEGATIVE [address], [place] U PH 8.5 5.0 - 9.0 [address], [place] PROTEIN (U) NEGATIVE NEGATIVE mg/dL [address], [place] UROBILINOGEN 0.2 0.2 - 1.0 EU/dL = mg/dL [address], [place] NITRITES NEGATIVE NEGATIVE MG/DL MG[address], [place] LEUKOCYTES (U) NEGATIVE NEGATIVE MG-[address], [place] URINE SPECIMEN OBTAINED BY CLEAN CATCH PROCEDURE / Unknown 01/12/2025 Yudi Márquez MD URINE ORDERABLES Final Result [address], [place] [address] [place] [address], * MAMMOGRAM GENERIC (04/24/2023) Anatomical Region Laterality Modality Other 04/24/2023 [facility] Scanned SCANNING Final Resu lt * HUMAN PAPILLOMAVIRUS, HIGH-RISK TYPES (02/14/2023 12:00 PM CDT) SPEC DESCRIPTION CERVICAL/END OCERVICAL 02/16/2023 8:32 AM CDT [facility] HPV DNA HIGH RISK NEGATIVE NEGATIVE 02/16/2023 1:36 PM CDT [facility] Comment:SEE CYTOLOGY REPORT 02/14/2023 12:0 0 PM CDT us Yudi Márquez MD PATHOLOGY/CYTOLOGY ORDERABLES Fi nal Result [facility] [address] [place] [address], * Cytopath Cerv/Vag Thin Layer (02/14/2023 7:53 AM CDT) THIN PREP PAP [address] [address] Department of Pathology Pathology Report CERVICAL/VAGINAL PAP SMEAR REPORT Name: ELIZABETH SPIVEY Age: 9 1985 (Age: 37) Location: [facility] Sex: F Collected Date: 02/14/2023 Hospital #: [id number] Date Received: 02/16/2023 Date Reported: 02/20/2023 Provider: YUDI MÁRQUEZ MD INTERPRETATION ABNORMAL RESULT CERVICAL/ENDOCERVIC AL: SATISFACTORY FOR EVALUATION. ENDOCERVICAL/TRANSF ORMATION ZONE COMPONENT PRESENT. ATYPICAL SQUAMOUS CELLS OF UNDETERMINED SIGNIFICANCE. NEGATIVE FOR HIGH-RISK HPV. The FDA approved Aptima HPV assay is an in vitro nucleic acid amplification test for the qualitative detection of E6/E7 viral messenger RNA (mRNA) from 14 high-risk types of human papillomavirus (HPV) in cervical specimens. The high-risk HPV types detected by the assay include: 16,18,31,33,35,39,4 5,51,52,56,58,59,66 , and 68. Electronically Signed Out MD Marly Wilson CT (ASCP) CLINICAL HISTORY Z12.4 SCREENING PAP TEST ThinPrep Pap Test with HR HPV testing in patient > 30 years requested. Slide screening performed by a rvda master certified rv technician at [facility], [address] [place] [address], Case signed out by a certified pathologist at [facility], [address] [place] [address] Date of Last Menstrual Period: 02/2023 Menstrual Status: Regular SPECIMEN SUBMITTED CERVICAL/ENDOCERVIC AL Specimen Received:1 Thin Prep Vial, Image Assisted Pap (SMD) Please note: The Pap smear is not a diagnostic test. It is a screening test. Negative results on combined screening (Pap test and HPV-DNA) have a high negative predictive value (99.1-100 percent) for cervical cancer. The pap test is not effective in detecting cervical adenocarcinoma. [facility] 02/14/2023 7:53 AM CDT 02/16/2023 7:53 AM CDT Comment:CERVICAL/ENDOCERVICA L us Yudi Márquez MD PATHOLOGY/CYTOLOGY ORDERABLES Fi nal Result [facility] [address] [place] [address], [place] [phone] * HEPATITIS C ANTIBODY (01/03/2023 7:15 AM CDT) HEPATITIS C AB NON-REACTI VE NON-REACT MAHENDRA 01/03/2023 6:18 PM CDT [facility] Comment: ANTIBODIES TO HCV NOT DETECTED. DOES NOT EXCLUDE THE POSSIBILITY OF EXPOSURE TO HCV. 01/03/2023 7:15 AM CDT us Yudi Márquez MD LABORATORY Final Result [facility] [address] [place] [address], [place] [phone] [id number] from Last 3 Months or Most Recently Relevant to Health Maintenance Insurance BLUE [employer] BLUE [facility] Care Teams Bottler Helper Relationship Specialty Start Date End Date Yudi Márquez MD [address] [facility] [address] [place] [address] PCP - General INTERNAL MEDICINE 12/27/22
--- OUTSIDE RECORDS SUMMARY | 2025-01-27 12:56 | XMS_ITS | Encounter Summary ---
Author Organization [facility] Address [address] [place] [address] Care Team Providers Care Sample Dye Mixer Name Role Phone Yudi Márquez MD Primary Care Provider [phone] Encounter Details Date Type Department Care Team (Latest Contact Info) Description 01/12/2025 Results Follow-Up [facility] Multispecialty Care - [address] [address] [address] [place] [address] Yudi Márquez MD [address] [place] [address] [address] [place] [address] VITAMIN D 25 OH, CBC W/DIFF AUTOMATED, COMPREHENSIVE METABOLIC PANEL, Additional followed-up results: 4 Social History Tobacco Use Types Packs/Day Years Used Date Smoking Tobacco: Never Smokeless Tobacco: Never Comments:Counseled by Dr Thea mistry. Alcohol Use Standard Drinks/Week Comments Never 0 (1 standard drink = 0.6 oz pur e alcohol) B1300 Health Literacy Answer Date Recor ded How often do you need to hav e someone help you when you read instructions, pamphlets, or other written material from your doctor or pharmacy? Never 01/12/2025 [facility] Utilities Answer Date Recorded In the past 12 months has e electric, gas, oil, or water company threatened to shut off services in your [...] week 01/12/2025 How often do you attend [facility] or confucianism services? Patient unable to answer 01/12/2025 Active [...] Recorded Patient Health Questionnaire-2 Score 0 01/14/2025 [facility] [place] of Occupat ional Health - Occupational Stress [...] any time in the past 12 m [facility], were you homeless or living in a snf (including now)? No 01/12/2025 Comments No Sex and Gender Information Value Date Recorded Sex Assigned at Not on file Legal Sex Female 3:50 PM CDT Gender Identity Not on file Sexual Orientation Not on file documented as of this encounter Functional Status * Audit-C Score Answer Date of Assessment Author Status 0 01/12/2025 8:08 AM Helen Castaneda MA Active * Question Answer Date of Assessment Author Status Q1: How often do you have a drink containing alcohol? Never 01/12/2025 8:08 AM KIMBERLYNT Helen Dash MA Active Q2: How many drinks containing alcohol do you have on a typical day when you are drinking? Patient does not drink 01/12/2025 8:08 AM Helen Castaneda MA Active Q3: How often do you have six or more drinks on one occasion? Never 01/12/2025 8:08 AM KIMBERLYNT Helen Dash MA Active * Over the past 2 weeks, how often have you been bothered by any of the following problems? Question Answer Date of Assessment Author Status Little interest or pleasure in doing things Not at all 01/14/2025 6:12 PM Yudi Rodriguez MD Active Feeling down, depressed, or hopeless Not at all 01/14/2025 6:12 PM Yudi Rodriguez MD Active Patient Health Questionnaire-2 Score 0 01/14/2025 6:12 PM Yudi Rodriguez MD Ac tive * Question Answer Date of Assessment Author Status Trouble falling or staying asleep, or sleeping too much Not at all 01/14/2025 6:12 PM Yudi Rodriguez MD Active Feeling tired or having little energy Not at all 01/14/2025 6:12 PM Yudi Rodriguez MD Active Poor appetite or overeating Not at all 01/14/2025 6:12 PM Yudi Rodriguez MD Active Feeling bad about yourself - or that you are a failure or have let yourself or your family down Not at all 01/14/2025 6:12 PM Yudi Rodriguez MD Active Trouble concentrating on things, such as reading the newspaper or watching television Not at all 01/14/2025 6:12 PM Yudi Rodriguez MD Active Moving or speaking so slowly that other people could have noticed? Or the opposite - being so fidgety or restless that you have been moving around a lot more than usual. Not at all 01/14/2025 6:12 PM Yudi Rodriguez MD Active Thoughts that you would be better off or hurting yourself in some way Not at all 01/14/2025 6:12 PM Yudi Rodriguez MD Act stevie Patient Health Questionnaire-9 Score 0 01/14/2025 6:12 PM Yudi Rodriguez MD Ac tive * If you checked off any problems on this questionnaire so far, Question Answer Date of Assessment Author Status How difficult have these problems made it for you to do your work, take care of things at home, or get along with other people? Not difficult at all 01/14/2025 6:12 PM Yudi Rodriguez MD Active * Over the last 2 weeks, how often have you been bothered by any of the following problems? Question Answer Date of Assessment Author Status Feeling nervous, anxious, or on edge 0 01/14/2025 6:12 PM CDT Yudi Márquez MD Active Not being able to stop or control worrying 0 01/14/2025 6:12 PM KIMBERLYNT Yudi Márquez MD Active Worrying too much about different things 0 01/14/2025 6:12 PM CDT Yudi Márquez MD Active Trouble relaxing 0 01/14/2025 6:12 PM CDT Yudi Márquez MD Active Being so restless that it is hard to sit still 0 01/14/2025 6:12 PM CDT Yudi Márquez MD Active Becoming easily annoyed or irritable 0 01/14/2025 6:12 PM KIMBERLYNT Yudi Márquez MD Active Feeling afraid as if somethi ng awful might happen 0 01/14/2025 6:12 PM KIMBERLYNT Yudi Márquez MD Activ e CHAPITO-7 Total Score 0 01/14/2025 6:12 PM KIMBERLYNT Yudi Márquez MD Active documented as of this encounter Plan of Treatment Upcoming Encounters Date Type Department Care Team (Late st Contact Info) Description 01/13/2026 7:00 AM CDT Office Visit [facility] Multispecialty Care - [address] [address] [address] [place] [address] Yudi Márquez MD [address] [place] [address] documented as of this encounter Visit Diagnoses Not on filedocumented in this encounter Care Teams Sample Dye Mixer Relationship Specialty Start Date End Date Yudi Márquez MD [address] [place] [address] PCP - General INTERNAL MEDICINE 12/27/22 documented as of this encounter
--- OUTSIDE RECORDS SUMMARY | 2025-01-27 12:56 | XMS_ITS | Clinical Summary ---
Author Organization [facility] [employer] Address [address] [place] [address] Care Team Providers Care Telegraph Inspector Name Role Phone Tasneem Moore SUPERVISOR JEWELRY DEPARTMENT-PLASTIC BOAT PATCHER Primary Care Pro vider Source Comments [facility] [employer],non-owned Affiliates and Associated Physician Practices is amultiple site organization consisting of ambulatory clinics and hospital sitesin [place], [place], [place] and [place]. This disclosure is being madepursuant to the Care Everywhere program and may not contain all information available regarding this patient. Last updated 18.[facility] [employer] Allergies No known active allergies Medications * Be aware that medications may not be up to date on this document. Alwaysverify current medications with the patient. SPIRONOLACTONE PO Ac tive Social History Tobacco Use Types Packs/Day Years Used Date Smoking Tobacco: Never Smokeless Tobacco: Never Comments No Sex and Gender Information Value Date Recorded Sex Assigned at Not on file Legal Sex Female 11:16 AM CDT Gender Identity Not on file Sexual Orientation Not on file Last Filed Vital Signs Vital Sign Reading Time Taken Comments Blood Pressure 100/60 01/14/2018 4:08 PM CDT Pulse 95 01/14/2018 4:08 PM CDT Temperature 36.4 C (97.6 F) 01/14/2018 4:08 PM CDT Respiratory Rate 18 01/14/2018 4:08 PM CDT Oxygen Saturation 99% 01/14/2018 4:08 PM CDT Inhaled Oxygen Concentration - - Weight 68 kg (150 lb) 01/14/2018 4:08 PM CDT Height 160 cm (5' 3) 01/14/2018 4:08 PM CDT Body Mass Index 26.57 01/14/2018 4:08 PM CDT Plan of Treatment Health Maintenance Due Date Last Done Comments LIPID TESTING 1983 MAMMOGRAM 1983 HIV SCREENING 1998 HEPATITIS C SCREENING 04/12/2001 DTAP/TDAP/TD VACCINES (1 - Tdap) 2002 HEPATITIS B VACCINE (1 of 3 - 19+ 3-dose series) 2002 PAP SMEAR 2004 COVID-19 VACCINE (1 - 2023-2 5 season) 2024 DEPRESSION SCREENING 08/13/2024 INFLUENZA VACCINE (Season Ended) 2025 ZOSTER VACCINE (1 of 2) 2033 HIB VACCINE Aged Out No longer eligi ble based on patient's age to complete this topic HPV VACCINE Aged Out No longer eligi ble based on patient's age to complete this topic MENINGOCOCCAL (Group B) VACC INE SHARED DECISION-MAKING Aged Out No longer eligibl e based on patient's age to complete this topic MENINGOCOCCAL GROUPS A/C/Y/W VACCINE Aged Out No longer eligible b ased on patient's age to complete this topic PNEUMOCOCCAL VACCINE Aged Out No long er eligible based on patient's age to complete this topic Insurance VALERIO Care Teams Telegraph Inspector Relationship Specialty Start Date End Date Tasneem Moore, ANNA-PLASTIC BOAT PATCHER [address] [place] [phone] PCP - General Nurse Practitioner [facility] 06/18/23
--- OUTSIDE RECORDS SUMMARY | 2025-01-27 12:56 | XMS_ITS | Clinical Summary ---
Author Organization [employer] [facility] - 2022 Address [address] [place] [address] Phone Care Team Providers Care Inspector Printed Circuit Boards Name Role Phone Not Found, Stl Primary Care Provider Unavailabl e Social History Tobacco Use Types Packs/Day Years Used Date Smoking Tobacco: Never Assessed Comments Unknown Sex and Gender Information Value Date Recorded Sex Assigned at Not on file Legal Sex Female 6:11 AM CLASSROOM AIDE Gender Identity Not on file Sexual Orientation Not on file Plan of Treatment Health Maintenance Due Date Last Done Comments DTAP/TDAP/TD VACCINES (1 - Tdap) 2002 HEPATITIS B VACCINES (1 of 3 - 19+ 3-dose series) 2002 HPV/Cotest (21-29) 2004 CERVICAL CANCER SCREENING 2013 HPV/Cotest (30-65) 2013 PAP SMEAR 2013 BREAST CANCER SCREENING 2023 INFLUENZA VACCINE (#1) 2024 HPV VACCINES Aged Out No longer eligi ble based on patient's age to complete this topic Insurance BS BLUE ACCESS/TRUE BLUE PPO Care Teams Inspector Printed Circuit Boards Relationship Specialty Start Date End Date Not Found, Stl NO ADDRESS ON FILE PCP - General 05/15/12
--- OUTSIDE RECORDS SUMMARY | 2025-01-27 12:56 | XMS_ITS | Clinical Summary ---
Author Organization [facility] Address [address] [place] [address] Care Team Providers Care Bookkeeper Name Role Phone Unavailable Primary Care Provider Unavailabl e Immunizations Immunization Administration Dates Next Due Covid-19, Mrna, Lnp-s, Pf, 30 Mcg/0.3 Ml Dose (P fizer) 08/17/2021 Social History Tobacco Use Types Packs/Day Years Used Date Smoking Tobacco: Never Assessed Comments Unknown Sex and Gender Information Value Date Recorded Sex Assigned at Not on file Legal Sex Female 2:01 PM CLOTH HAULER Gender Identity Not on file Sexual Orientation Not on file Plan of Treatment Health Maintenance Due Date Last Done Comments Hepatitis C Virus (HCV) Screening 1983 TdaP Immunization 1983 Hepatitis B Immunization (1 of 3 - 19+ 3-dose series) 2002 SARS-COV-2 Immunization ( season) 2024 08/17/2021, 10/22/2020, 09/24/2020 Influenza Immunization (Seas on Ended) 2025 Respiratory Syncytial Virus (RSV) Immunization (Adult) (1 - 1-dose 75+ series) 2058 Human Papillomavirus (HPV) Immunization Aged Out No longer eligible b ased on patient's age to complete this topic Meningococcal Immunization (ACWY) Aged Out No longer eligible b ased on patient's age to complete this topic Pneumococcal Immunization Combined Aged Out No longer eligible b ased on patient's age to complete this topic Rotavirus Immunization Aged Out No lo nger eligible based on patient's age to complete this topic
== END 2025-01-27 12:26 | disposition home or self-care (01) ==
LOC: CHSIMG 12:27
PROVIDERS: PCP Internal Medicine; Visit Provider Internal Medicine
DX: Z12.31 Encounter for screening mammogram for malignant neoplasm of breast (principal); R92.8 Other abnormal and inconclusive findings on diagnostic imaging of breast
CPT/HCPCS: 77063; 77067

== ENCOUNTER 2025-02-16 08:53 | Outpatient (CLI) | payer BC, SELFPAY ==
--- NOTE | ~2025-02-16 | US_ITS ---
US breast BI complete 02/16/2025 09:31 Indication: Abnormal screening mammogram. Developing breast masses. Procedure: High-resolution complete bilateral breast ultrasound including all 4 quadrants in the suba reolar locations. Comparison: Ultrasound dated 04/24/2023 Findings: There are multiple bilateral breast cysts. In the left breast near the nipple there is a bi lobed parallel oriented hypoechoic mass which is partially cystic mass measuring 2.4 cm, likely benig n. Impression: 1: Probable benign complicated cyst of the left breast near the nipple measuring 2.4 cm. No evidence for malignancy in the right breast. BI-RADS CATEGORY 3-PROBABLY BENIGN FINDING RECOMMENDATION: 6 month follow-up Limited left breast ultrasound recommended. Reviewed, dictated and finalized at location A. Impression: 1: Probable benign complicated cyst of the left breast near the nipple measurin g 2.4 cm. No evidence for malignancy in the right breast. BI-RADS CATEGORY 3-PROBABLY BENIGN FINDING RECOMMENDATION: 6 month follow-up Limited left breast ultrasound recommended.
--- OUTSIDE RECORDS SUMMARY | 2025-02-16 09:07 | XMS_ITS | Data Portability ---
Author Organization [facility] Address [address] [place] [address] Care Team Providers Care Window And Siding Craftsman Name Role Phone LUDAMORRADHA Primary Care Provider Assessment Encounter Date Assessment Date Assessment LastModified [...] . Referral breast surgery referral [address] Breast [facility], [address] [place] [address], [facility] [address], [address], 4 09:14:23 Procedures None recorded . Surgeries None recorded . Imaging MAMMO, diagnost ic, digital, bilatera l - bilatera l breast lumps in outer quadrant s 2022 023 MERON Not available 3 14:21:50 US, breast, bilatera l, complete 2022 023 vschroedter Not available 15:58:26 Medication Orders None recorded . Patient TargetsNo targets recorded. Patient InstructionsNo instructions recorded. Reason for Referral Breast Surgery Referral for Breast lump Referring Physician: Tasneem Gross, COMPANY TANKER TRUCK DRIVER, Encounter Date: 06/04/2023 Results Created Date Observation Date Name Description Value Unit Range Abnormal Flag Note LastModifiedBy Organization Detail LastModifiedTime 04/24/2004/24/2023 MAMMO , diagn ostic , digit al, bilat eral No observ ation record ed. [facility] [address] [place], [address], 04/25/2023 12:26:31 Result Notes None recorded. Procedures Surgical History Date Name Laterality Status Provider Name and Address Organization Details Recorded Time Date of Last Pap Smear completed [facility] 03/14/2023 14:51:21 Imaging Results None [...] Body mass index (BMI) Body weight Systolic And Diastolic Provider Name and Address Organization Details Last Updated DateTime 03/14/2023 160.02 cm 29.6 kg/m2 29365.64 g 115/75 mm[Hg] [facility] 03/14/2023 14:51:01 Date Recorded Body height Body mass index (BMI) Body weight Systolic And Diastolic Provider Name and Address Organization Details Last Updated DateTime 06/04/2023 160.02 cm 29.6 kg/m2 07026.93 g 124/80 mm[Hg] Katherynjaycob Walsh [facility] 06/04/2023 14:29:04 Social History Question Answer Notes LastModified by Organizat ion Details LastModified Time Tobacco Smoking Status Never Smoker Katherynjaycob Walsh [facility] 06/04/2023 14:29:13 Are You Blind Or Do You Have Difficulty Seeing? No [facility] Information n ot available 03/14/2023 What Is [...] Or The Highest Degree You Have Received? [id number] Information not available 06/04/2023 Are There Any [...] anxious, or unable to sleep at night)? [id number] Information not available 06/04/2023 Family History Relationship Description Onset Age of this Age Resolved Age Notes LastModified by Organization Details LastModified Time Paternal Grandmother Malignant tumor of colon [email or web address] Not available 09/2022 14:53:11 Mother Essential hypertension [email or web address] Not available 14:22:37 Father Malignant neoplasm of [...] SNOMED-CT Code Diagnosis ICD10 Code Diagnosis Note [id number] Tasneem Gross [facility] [place] [address] [address] 03/14/2023 14:10:13 03/14/2023 16:56:17 Breast lump 81276659 N63.0 Gynecologi c examination [id number] Z01.419 Take Calcium with Vitamin D 1200mg [...] in 1 year or sooner if needed [id number] IVA [facility] [place] [address] [address] 06/04/2023 14:22:12 06/04/2023 15:14:17 Breast lump [id number] N63.0 persistant bilateral breast lumps felt on exam todaydiscu ssed option of breast specialist consult, she would like to pursue thisprefer s to go to [facility], referral placedRT for WWE or sooner if needed Time [...] Delacruz Member ID Guarantor Name 07/30/2023 1 [facility] (O) [id number] Kurt Spivey [id number] [place] Spivey Notes Date Note Type [...] years ago IVA Cristobal [address], [place], [address], [facility] 03/14/2023 16:52:28 06/04/2023 text/html 38yopresents for f/u on breast lumpbilateral breast lumps noted on exam 3diagnostic nory and u/s noted bi-rads 2, multiple benign breast cystlumps are still felt, tenderness comes and goes drinks 1 cup of coffee per day IVA Cristobal [address], [place], [address], [place] [facility] 06/04/2023 14:57:24 OBGyn Episode Ob Episode Information Episode Created Date Number of Fetuses Patient Bloodtype Patient rh Status Prepregnancy Weight lbs Domestic Partner Domestic Partner Phone Father Name Mechanical Development Engineer Status 03/14/20 1 CLOSED Fetus Data First Name Last Name Admitted to NICU Weight (g) Sex Living Outcome Pediatric Complications Fetus ID Race Codes Race Delivery Type 3628.73 6 M [id number] Repeat Taqueria Calculation Initial Taqueria Date Initial [...] Domestic Partner Domestic Partner Phone Father Name Mechanical Development Engineer Status 03/14/20 1 CLOSED Fetus Data First Name Last Name Admitted to NICU Weight (g) Sex Living Outcome Pediatric Complications Fetus ID Race Codes Race Delivery Type 3628.73 6 M [id number] Primary Taqueria Calculation Initial Taqueria Date Initial [...]
--- OUTSIDE RECORDS SUMMARY | 2025-02-16 09:07 | XMS_ITS | Clinical Summary ---
Author Organization [employer] [facility] [facility] - 2022 Address [address] [place] [address] Phone Care Team Providers Care Intelligence Agent Name Role Phone Not Found, Stl Primary Care Provider Unavailabl e Social History Tobacco Use Types Packs/Day Years Used Date Smoking Tobacco: Never Assessed Comments Unknown Sex and Gender Information Value Date Recorded Sex Assigned at Not on file Legal Sex Female 6:11 AM SIGNAL OPERATOR LINGUIST Gender Identity Not on file Sexual Orientation Not on file Plan of Treatment Health Maintenance Due Date Last Done Comments DTAP/TDAP/TD VACCINES (1 - Tdap) 2002 HEPATITIS B VACCINES (1 of 3 - 19+ 3-dose series) 2002 HPV/Cotest (21-29) 2004 CERVICAL CANCER SCREENING 2013 HPV/Cotest (30-65) 2013 PAP SMEAR 2013 BREAST CANCER SCREENING 2023 INFLUENZA VACCINE (#1) 2025 HPV VACCINES Aged Out No longer eligi ble based on patient's age to complete this topic Insurance BS BLUE ACCESS/TRUE BLUE PPO Care Teams Intelligence Agent Relationship Specialty Start Date End Date Not Found, Stl NO ADDRESS ON FILE PCP - General 05/15/12
--- OUTSIDE RECORDS SUMMARY | 2025-02-16 09:07 | XMS_ITS | Continuity of Care Document ---
Author Organization [facility] Address [address] [place] [address] Phone Care Team Providers Care Senior Mechanical Project Engineer Name Role Phone Gopal Cleary MD Unavailable [...] PREV VISIT, NEW, AGE 18-39 OFFICE/OUTPATIENT VISIT, [facility] Advance Directives Directive Yes / No Effective Date File Name No Information Encounters Encounter Description Practice Location Reason(s) For Visit Diagnoses Date Provider Providers Copied on Encounter [facility] [place], [address] [place], [place], [id number], tel:[phone] [facility] [place] No Information Evin Herron. [address] [place], [id number] , [place]. tel:[phone] PREV VISIT, NEW, AGE 18-39 [facility] [place], [address] [place], [place], [id number], [place] tel:[phone] [facility] Medicine physical (chief complaint) Encounter for general adult medical exam w abnormal findingsPain in right knee Evin Herron. [address], [facility], [place], [place], [id number] , [place]. tel:[phone] Family History Family Member Type Diagnosis Age At Onset Sister Problem Alive and well Father Problem of throat CA related to toxic exposure 56 Mother Problem Alive and well Payers Payer name Insurance type Covered libertarian ID Authoriza tion(s) No Information Social History Type Description Quantity Date Captured Comments Sex Female Smoking Status No Information Chief Complaint And Reason For Visit No Information Plan Of Treatment Date Type Action Status Referral Ordered: Physical Therapy (related to Pain in right knee) ordered Referral Referred To: Physical Therapy Ordered: Referrals: Physical Therapy. Evaluate and treat ordered Referral Ordered: KNEE XRAY, 4 OR MORE VIEWS Right ordered Referral Ordered: MRI JNT OF LWR EXTRE W/O DYE Right knee ordered Referral Ordered: MAMMOGRAM, SCREENING ordered History [...]
--- OUTSIDE RECORDS SUMMARY | 2025-02-16 09:08 | XMS_ITS | Clinical Summary ---
Author Organization [facility] Address [address] [place] [address] Care Team Providers Care Bisque Kiln Placer Name Role Phone Unavailable Primary Care Provider Unavailabl e Immunizations Immunization Administration Dates Next Due Covid-19, Mrna, Lnp-s, Pf, 30 Mcg/0.3 Ml Dose (P fizer) 08/17/2021 Social History Tobacco Use Types Packs/Day Years Used Date Smoking Tobacco: Never Assessed Comments Unknown Sex and Gender Information Value Date Recorded Sex Assigned at Not on file Legal Sex Female 2:01 PM SYSTEMS SUPPORT OFFICER Gender Identity Not on file Sexual Orientation [...]
--- OUTSIDE RECORDS SUMMARY | 2025-02-16 09:08 | XMS_ITS | Clinical Summary ---
Author Organization [facility] [employer] Address [address] [place] [address] Care Team Providers Care Warehouse And Receiving Supervisor Name Role Phone Tasneem Moore MARKETING CLERK-ECONOMIC ANALYST Primary Care Pro vider Source Comments [facility] [employer],non-owned Affiliates and Associated Physician Practices is amultiple site organization consisting of ambulatory clinics and hospital sitesin [place], [place], [place] and [place]. This disclosure is being madepursuant to the Care Everywhere program and may not contain all information available regarding this patient. Last updated 18.[facility] [employer] Allergies No known active allergies Medications * [...] complete this topic Insurance VALERIO Care Teams Warehouse And Receiving Supervisor Relationship Specialty Start Date End Date Tasneem Moore, ANNA-ECONOMIC ANALYST [address] [place] [phone] PCP - General Nurse Practitioner [facility] 06/18/23
== END 2025-02-16 08:54 | disposition home or self-care (01) ==
LOC: CHSIMG 08:55
PROVIDERS: PCP Internal Medicine; Visit Provider Internal Medicine
DX: R92.8 Other abnormal and inconclusive findings on diagnostic imaging of breast (principal)
CPT/HCPCS: 76641